=== PATIENT | female | born 1955 | race Caucasian/White ===

== ENCOUNTER 2017-06-18 20:50 | Emergency (ER) | payer BC, OTHER ==
--- NOTE | 2017-06-18 21:21 | EDM.PDOC ---
ED HPI GENERAL MEDICAL PROBLEM - General Chief Complaint: Lower Extremity Injury/Pain Stated Complaint: PT HAS PAIN IN RT THIGH Time Seen by Provider: 06/18/17 21:16 Source of Information: Reports: Patient History Limitations: Reports: No Limitations - History of Present Illness INITIAL COMMENTS - FREE TEXT/NARRATIVE: HISTORY AND PHYSICAL: []1-year-old female presenting with right leg pain to her thigh extending down to her knee History of Present Illness: []Recently has been traveling in the car for 10 hours driving Patient experienced 4 times of pain originating in her groin down to the knee Does not have the pain when she presents to the ER took 1 baby aspirin earlier today Review of Systems: As per history of present illness and below otherwise all systems reviewed and negative. Past medical history: As per history of present illness and as reviewed below otherwise noncontributory. Surgical history: As per history of present illness and as reviewed below otherwise noncontributory. Social history: No reported history of drug or alcohol abuse. Family history: As per history of present illness and as reviewed below otherwise noncontributory. Physical exam: Alert and oriented female answers questions appropriately speaking in full sentences HEENT: Atraumatic, normocehpalic, pupils reactive, negative for conjunctival pallor or scleral icterus, mucous membranes moist, throat clear, neck supple, nontender, trachea midline. Lungs: Clear to auscultation, breath sounds equal bilaterally, chest non tender. Heart: S1S2, regular, negative for clicks, rubs, or JVD. Abdomen: Soft, nondistended, nontender. Negative for masses or hepatossplenmegaly. Negative for costovertebral tenderness. Faint right femoral pulse Pelvis: Stable nontender. Genitourinary: Deferred. Rectal: Deferred Extremities: Atraumatic, negative for cords or calf pain. Neurovascular unremarkable. Neuro: Awake, alert, oriented. Cranial nerves II through XII unremarkable. Cerebellum unremarkable. Motor and sensory unremarkable throughout. Exam nonfocal. Diagnostics: []Venous Doppler negative for DVT Therapeutics: [] Impression: [Atypical leg pain resolved] Plan: []Home Lobe with PCP if Definitive disposition and diagnosis as appropriate pending reevaluation and review of above. Onset: Sudden Duration: Resolved Prior to Arrival - Related Data Allergies Allergy/AdvReac Type Severity Reaction Status Date / Time No Known Allergies Allergy Verified 07/25/17 21:13 Home Meds: Home Meds . [No Known Home Meds] 06/18/17 [History] Review of Systems - Review of Systems Review Of Systems: ROS reveals no pertinent complaints other than HPI. ED EXAM, GENERAL - Physical Exam Exam: See Below (See dictation) Course - Vital Signs Last Recorded V/S: Last Vital Signs Temp 36.8 C 06/18/17 21:13 Pulse 63 06/18/17 21:13 Resp 18 06/18/17 21:13 BP 223/100 H 06/18/17 21:13 Pulse Ox 98 06/18/17 21:13 - Orders/Labs/Meds Orders: Active Orders 24 hr Category Date Time Status Venous Doppler Lwr Ext Rt [US] Stat Exams 06/18/17 21:22 Taken Departure - Departure Time of Disposition: 22:15 Disposition: Home, Self-Care 01 Condition: Good Clinical Impression: Leg pain, right - Discharge Information Forms: ED Department Discharge Additional Instructions: The following information is given to patients seen in the emergency department who are being discharged to home. This information is to outline your options for follow-up care. We provide all patients seen in our emergency department with a follow-up referral. The need for follow-up, as well as the timing and circumstances, are variable depending upon the specifics of your emergency department visit. If you don't have a primary care physician on staff, we will provide you with a referral. We always advise you to contact your personal physician following an emergency department visit to inform them of the circumstance of the visit and for follow-up with them and/or the need for any referrals to a consulting specialist. The emergency department will also refer you to a specialist when appropriate. This referral assures that you have the opportunity for followup care with a specialist. All of these measure are taken in an effort to provide you with optimal care, which includes your followup. Under all circumstances we always encourage you to contact your private physician who remains a resource for coordinating your care. When calling for followup care, please make the office aware that this follow-up is from your recent emergency room visit. If for any reason you are refused follow-up, please contact the [facility] emergency department at and asked to speak to the emergency department charge nurse. Follow up with your primary care should symptoms continue - My Orders Last 24 Hours: My Active Orders 06/18/17 21:22 Venous Doppler Lwr Ext Rt [US] Stat - Assessment/Plan Last 24 Hours: My Active Orders 06/18/17 21:22 Venous Doppler Lwr Ext Rt [US] Stat
[2017-06-19 02:25] VITALS: BP 184/95
--- NOTE | 2017-06-19 09:53 | US ---
EXAM DATE: 06/18/17 PATIENT'S AGE: 61 Patient: BONILLA BREWER Facility: [place], [place] Site . Site : [id number] Study: US Extremity Right [id number]/25/2017 9:59:52 PM Ordering Physician: Doctor Gillis Final Report: INDICATION: Right leg pain TECHNIQUE: Ultrasound venous duplex lower right extremity. Compression venous exam was performed using power-scale, color Doppler, and spectral Doppler imaging. COMPARISON: None FINDINGS: Sonographic imaging demonstrates the right common femoral, deep femoral, superficial femoral, popliteal, and posterior tibial veins to be fully compressible with normal color Doppler blood flow. IMPRESSION: Normal right lower extremity venous ultrasound, no sign of deep venous thrombosis. Dictated by Cathie Ricci MD @ Jun 18 2017 10:08PM (Electronic Signature) Report Signed by Proxy. MARGI
== END 2017-06-18 22:44 | disposition home or self-care (01) ==
LOC: MW.ED 20:50
DX: M79.604 Pain in right leg (principal)
CPT/HCPCS: 93971-26-RT; 93971-RT; 99282; 99283-25

== ENCOUNTER 2018-08-04 14:21 | Observation (INO) | payer BC ==
[2018-08-04] MEDS ORDERED: Sodium Chloride 0.9% 10 ML Syringe FLUSH PRN ×2 (14:52→16:23)
[2018-08-04] MEDS ORDERED: Sodium Chloride 0.9% 2.5 ML Syringe FLUSH PRN ×2 (14:52→16:23)
--- NOTE | 2018-08-04 14:54 | EDM.PDOC ---
ED HPI GENERAL MEDICAL PROBLEM - General Chief Complaint: Chest Pain Stated Complaint: CHEST PAIN Time Seen by Provider: 08/04/18 14:22 Source of Information: Reports: Patient History Limitations: Reports: No Limitations - History of Present Illness INITIAL COMMENTS - FREE TEXT/NARRATIVE: History of present illness: []Patient diagnosed with hypertension and placed on a diuretic without improvement. She's had multiple brief episodes of chest pain with exertion stress. Patient was shopping at [employer] carrying a basket she started having chest "fluttering" around 1:00 this afternoon. She decided to come to the emergency room after it did not subside after taking aspirin and resting in her vehicle. Review of systems: As per history of present illness and below otherwise all systems reviewed and negative. Past medical history: As per history of present illness and as reviewed below otherwise noncontributory. Surgical history: As per history of present illness and as reviewed below otherwise noncontributory. Social history: No reported history of drug or alcohol abuse. Family history: As per history of present illness and as reviewed below otherwise noncontributory. Physical exam: General: Well developed, well nourished in NAD HEENT: Atraumatic, normocephalic, pupils reactive, negative for conjunctival pallor or scleral icterus, mucous membranes moist, throat clear, neck supple, nontender, trachea midline. Lungs: Clear to auscultation, breath sounds equal bilaterally, chest nontender. Heart: S1S2, regular, negative for clicks, rubs, or JVD. Abdomen: Soft, nondistended, nontender. Negative for masses or hepatosplenomegaly. Negative for costovertebral tenderness. Pelvis: Stable nontender. Genitourinary: Deferred. Rectal: Deferred. Extremities: Atraumatic, negative for cords or calf pain. Neurovascular unremarkable. Neuro: Awake, alert, oriented. Cranial nerves II through XII unremarkable. Cerebellum unremarkable. Motor and sensory unremarkable throughout. Exam nonfocal. Skin:warm and dry Diagnostics: EKG, CBC, chemistry, troponin, chest x-ray Therapeutics: Aspirin, nitroglycerin, labetalol ED Course: unremarkable Impression: Uncontrolled hypertension Prescriptions: Plan: Admit to observation to rule out [place] Definitive disposition and diagnosis as appropriate pending reevaluation and review of above. - Related Data Allergies Allergy/AdvReac Type Severity Reaction Status Date / Time azithromycin Allergy Itching Verified 08/04/18 16:44 Home Meds: Home Meds Chlorthalidone 25 mg PO WITHBREAKFAST 08/04/18 [History] Past Medical History - Past Health History Medical/Surgical History: Denies Medical/Surgical History Social & Family History - Caffeine Use Caffeine Use: Reports: Coffee ED ROS GENERAL - Review of Systems Review Of Systems: ROS reveals no pertinent complaints other than HPI. ED EXAM, GENERAL - Physical Exam Exam: See Below (See history of present illness) Course - Vital Signs Last Recorded V/S: Last Vital Signs Temp 97.3 F 08/05/18 03:42 Pulse 72 08/05/18 03:42 Resp 16 08/05/18 03:42 BP 159/75 H 08/05/18 03:42 Pulse Ox 99 08/05/18 03:42 - Orders/Labs/Meds Orders: Active Orders 24 hr Category Date Time Status Nitroglycerin [Nitrostat] Med 08/04/18 14:52 Active 0.4 mg SL Q5M PRN Sodium Chloride 0.9% [Saline Flush] Med 08/04/18 14:52 Active 10 ml FLUSH ASDIRECTED PRN Sodium Chloride 0.9% [Saline Flush] Med 08/04/18 14:52 Active 2.5 ml FLUSH ASDIRECTED PRN Saline Lock Insert [OM.PC] Stat Oth 08/04/18 14:52 Ordered Medication Orders Acetaminophen (Tylenol) 650 mg PO Q4H PRN PRN Reason: Pain (Mild 1-3)/fever Chlorthalidone (Chlorthalidone) 25 mg PO DAILY CLAUDIA Enoxaparin Sodium (Lovenox) 40 mg SUBCUT Q24H CLAUDIA Last Admin: 08/04/18 17:49 Dose: 40 mg Sodium Chloride (Normal Saline) 1,000 mls @ 125 mls/hr IV ASDIRECTED CLAUDIA Last Admin: 08/05/18 03:28 Dose: 125 mls/hr Infusion: 08/05/18 03:28 Dose: 125 mls/hr Admin: 08/04/18 19:28 Dose: 125 mls/hr Morphine Sulfate (Morphine) 2 mg IVPUSH Q2H PRN PRN Reason: Pain (severe 7-10) Stop: 08/05/18 16:28 Nitroglycerin (Nitrostat) 0.4 mg SL Q5M PRN PRN Reason: Chest Pain Last Admin: 08/04/18 15:12 Dose: 0.4 mg Admin: 08/04/18 14:58 Dose: 0.4 mg Nitroglycerin (Nitrostat) 0.4 mg SL Q5M PRN PRN Reason: Chest Pain Ondansetron HCl (Zofran) 4 mg IVPUSH Q4H PRN PRN Reason: Nausea/Vomiting Potassium Chloride (Klor-Con M20) 40 meq PO BID CLAUDIA Last Admin: 08/04/18 21:16 Dose: 40 meq Admin: 08/04/18 17:47 Dose: 40 meq Sodium Chloride (Saline Flush) 10 ml FLUSH ASDIRECTED PRN PRN Reason: Keep Vein Open Last Admin: 08/04/18 15:00 Dose: 10 ml Sodium Chloride (Saline Flush) 2.5 ml FLUSH ASDIRECTED PRN PRN Reason: Keep Vein Open Last Admin: 08/04/18 14:59 Dose: 2.5 ml Sodium Chloride (Saline Flush) 10 ml FLUSH ASDIRECTED PRN PRN Reason: Keep Vein Open Sodium Chloride (Saline Flush) 2.5 ml FLUSH ASDIRECTED PRN PRN Reason: Keep Vein Open Labs: Laboratory Tests 08/04/18 08/04/18 08/04/18 Range/Units 15:10 15:10 15:10 WBC 9.35 (4.0-11.0) K/uL RBC 5.76 (4.30-5.90) M/uL Hgb 17.1 H (12.0-16.0) g/dL Hct 48.9 H (36.0-46.0) % MCV 84.9 (80.0-98.0) fL MCH 29.7 (27.0-32.0) pg MCHC 35.0 (31.0-37.0) g/dL RDW Std Deviation 39.3 (28.0-62.0) fl RDW Coeff of Jennifer 13 (11.0-15.0) % Plt Count 216 (150-400) K/uL MPV 10.60 (7.40-12.00) fL Neut % (Auto) 68.6 (48.0-80.0) % Lymph % (Auto) 22.2 (16.0-40.0) % Shelby % (Auto) 6.7 (0.0-15.0) % Eos % (Auto) 2.2 (0.0-7.0) % Baso % (Auto) 0.3 (0.0-1.5) % Neut # (Auto) 6.4 H (1.4-5.7) K/uL Lymph # (Auto) 2.1 (0.6-2.4) K/uL Shelby # (Auto) 0.6 (0.0-0.8) K/uL Eos # (Auto) 0.2 (0.0-0.7) K/uL Baso # (Auto) 0.0 (0.0-0.1) K/uL Nucleated RBC % 0.0 /100WBC Nucleated RBCs # 0 K/uL Sodium 136 (136-145) mmol/L Potassium 3.0 L (3.5-5.1) mmol/L Chloride 99 (98-107) mmol/L Carbon Dioxide 28.7 (21.0-32.0) mmol/L BUN 14 (7.0-18.0) mg/dL Creatinine 1.0 (0.6-1.0) mg/dL Est Cr Clr Drug Dosing 60.18 mL/min Estimated GFR (MDRD) 56.0 ml/min Glucose 187 H (74-106) mg/dL Hemoglobin A1c (4.5-6.2) % Calcium 10.4 H (8.5-10.1) mg/dL Total Bilirubin 0.8 (0.2-1.0) mg/dL AST 22 (15-37) IU/L ALT 45 (14-63) IU/L Alkaline Phosphatase 152 H (46-116) U/L Troponin I < 0.050 (0.000-0.056) ng/mL Total Protein 7.4 (6.4-8.2) g/dL Albumin 4.0 (3.4-5.0) g/dL Globulin 3.4 (2.0-3.5) g/dL Albumin/Globulin Ratio 1.2 L (1.3-2.8) Triglycerides 218 H (0-200) mg/dL Cholesterol 245 H (50-200) mg/dL LDL Cholesterol, Calc 157 (60-180) mg/dL VLDL Cholesterol 43 (5-55) mg/dL HDL Cholesterol 44 (40-60) mg/dL Cholesterol/HDL Ratio 5.6 (3.3-6.0) TSH 3rd Generation (0.36-3.74) uIU/mL 08/04/18 08/04/18 Range/Units 15:10 15:10 WBC (4.0-11.0) K/uL RBC (4.30-5.90) M/uL Hgb (12.0-16.0) g/dL Hct (36.0-46.0) % MCV (80.0-98.0) fL MCH (27.0-32.0) pg MCHC (31.0-37.0) g/dL RDW Std Deviation (28.0-62.0) fl RDW Coeff of Jennifer (11.0-15.0) % Plt Count (150-400) K/uL MPV (7.40-12.00) fL Neut % (Auto) (48.0-80.0) % Lymph % (Auto) (16.0-40.0) % Shelby % (Auto) (0.0-15.0) % Eos % (Auto) (0.0-7.0) % Baso % (Auto) (0.0-1.5) % Neut # (Auto) (1.4-5.7) K/uL Lymph # (Auto) (0.6-2.4) K/uL Shelby # (Auto) (0.0-0.8) K/uL Eos # (Auto) (0.0-0.7) K/uL Baso # (Auto) (0.0-0.1) K/uL Nucleated RBC % /100WBC Nucleated RBCs # K/uL Sodium (136-145) mmol/L Potassium (3.5-5.1) mmol/L Chloride (98-107) mmol/L Carbon Dioxide (21.0-32.0) mmol/L BUN (7.0-18.0) mg/dL Creatinine (0.6-1.0) mg/dL Est Cr Clr Drug Dosing mL/min Estimated GFR (MDRD) ml/min Glucose (74-106) mg/dL Hemoglobin A1c 5.8 (4.5-6.2) % Calcium (8.5-10.1) mg/dL Total Bilirubin (0.2-1.0) mg/dL AST (15-37) IU/L ALT (14-63) IU/L Alkaline Phosphatase (46-116) U/L Troponin I (0.000-0.056) ng/mL Total Protein (6.4-8.2) g/dL Albumin (3.4-5.0) g/dL Globulin (2.0-3.5) g/dL Albumin/Globulin Ratio (1.3-2.8) Triglycerides (0-200) mg/dL Cholesterol (50-200) mg/dL LDL Cholesterol, Calc (60-180) mg/dL VLDL Cholesterol (5-55) mg/dL HDL Cholesterol (40-60) mg/dL Cholesterol/HDL Ratio (3.3-6.0) TSH 3rd Generation 1.41 (0.36-3.74) uIU/mL Meds: Medications Generic Name Dose Route Start Last Admin Trade Name Freq PRN Reason Stop Dose Admin Acetaminophen 650 mg 08/04/18 16:23 Tylenol PO Q4H PRN Pain (Mild 1-3)/fever Chlorthalidone 25 mg 08/05/18 09:00 Chlorthalidone PO DAILY CLAUDIA Enoxaparin Sodium 40 mg 08/04/18 16:30 08/04/18 17:49 Lovenox SUBCUT 40 mg Q24H CLAUDIA Administration Sodium Chloride 1,000 mls @ 125 mls/hr 08/04/18 16:30 08/05/18 03:28 Normal Saline IV 125 mls/hr ASDIRECTED CLAUDIA Administration Morphine Sulfate 2 mg 08/04/18 16:23 Morphine IVPUSH 08/05/18 16:28 Q2H PRN Pain (severe 7-10) Nitroglycerin 0.4 mg 08/04/18 14:52 08/04/18 15:12 Nitrostat SL 0.4 mg Q5M PRN Administration Chest Pain Nitroglycerin 0.4 mg 08/04/18 16:23 Nitrostat SL Q5M PRN Chest Pain Ondansetron HCl 4 mg 08/04/18 16:23 Zofran IVPUSH Q4H PRN Nausea/Vomiting Potassium Chloride 40 meq 08/04/18 17:30 08/04/18 21:16 Klor-Con M20 PO 40 meq BID CLAUDIA Administration Sodium Chloride 10 ml 08/04/18 14:52 08/04/18 15:00 Saline Flush FLUSH 10 ml ASDIRECTED PRN Administration Keep Vein Open Sodium Chloride 2.5 ml 08/04/18 14:52 08/04/18 14:59 Saline Flush FLUSH 2.5 ml ASDIRECTED PRN Administration Keep Vein Open Sodium Chloride 10 ml 08/04/18 16:23 Saline Flush FLUSH ASDIRECTED PRN Keep Vein Open Sodium Chloride 2.5 ml 08/04/18 16:23 Saline Flush FLUSH ASDIRECTED PRN Keep Vein Open Discontinued Medications Generic Name Dose Route Start Last Admin Trade Name Freq PRN Reason Stop Dose Admin Labetalol HCl 20 mg 08/04/18 15:17 08/04/18 15:32 Normodyne IVPUSH 08/04/18 15:18 20 mg NOW ONE Administration Protocol Departure - Departure Time of Disposition: 16:25 Disposition: Refer to Observation Condition: Good Clinical Impression: Uncontrolled hypertension - My Orders Last 24 Hours: My Active Orders 08/04/18 14:52 Nitroglycerin [Nitrostat] 0.4 mg SL Q5M PRN Sodium Chloride 0.9% [Saline Flush] 10 ml FLUSH ASDIRECTED PRN Sodium Chloride 0.9% [Saline Flush] 2.5 ml FLUSH ASDIRECTED PRN Saline Lock Insert [OM.PC] Stat - Assessment/Plan Last 24 Hours: My Active Orders 08/04/18 14:52 Nitroglycerin [Nitrostat] 0.4 mg SL Q5M PRN Sodium Chloride 0.9% [Saline Flush] 10 ml FLUSH ASDIRECTED PRN Sodium Chloride 0.9% [Saline Flush] 2.5 ml FLUSH ASDIRECTED PRN Saline Lock Insert [OM.PC] Stat
[2018-08-04] MEDS: Nitroglycerin 0.4 MG Tab.SL SL PRN ×2 (14:58→15:12)
[2018-08-04] MEDS ORDERED: Labetalol 20 MG/4 ML Syringe IVPUSH ONE (15:17)
--- NOTE | 2018-08-04 15:42 | CR ---
EXAMINATION: Portable chest radiograph. HISTORY: Shortness of breath. FINDINGS: The trachea is midline. The cardiomediastinal silhouette is within normal limits. No pulmonary infilt rates, effusions or pneumothorax. Osseous structures appear unremarkable. IMPRESSION: No acute cardiopulmonary process.
[2018-08-04 15:52] LABS: CHLORIDE,CL 99 mmol/L (98-107); SODIUM,NA 136 mmol/L (136-145)
[2018-08-04] MEDS ORDERED: Morphine 10 MG/ML Syringe IVPUSH PRN (16:23)
[2018-08-04] MEDS ORDERED: Acetaminophen 325 MG Tab PO PRN (16:23)
[2018-08-04] MEDS ORDERED: Ondansetron 4 MG/2 ML SDV IVPUSH PRN (16:23)
[2018-08-04] MEDS ORDERED: Nitroglycerin 0.4 MG Tab.SL SL PRN (16:23)
[2018-08-04] MEDS ORDERED: Enoxaparin 40 MG/0.4 ML Syringe SUBCUT SCH (16:30)
--- NOTE | 2018-08-04 16:36 | PCM.HP ---
H&P History of Present Illness - General Date of Service: 08/04/18 Admit Problem/Dx: Admission Diagnosis/Problem Admission Diagnosis/Problem Chest pain Source of Information: Patient History Limitations: Reports: No Limitations - History of Present Illness Initial Comments - Free Text/Narative: This is a 62-year-old female with a significant past medical history of uncontrolled hypertension who is presenting today with vague chest discomfort and heart palpitations. Patient states that she was in [facility] when she had this funny feeling and come into the ER due to these concerns. The patient just recently was started on chlorthalidone 25 mg by her primary care in [place] for her hypertension. Prior to this the patient had been very resistant to hypertensive medications despite being clinically diagnosed in having a significant family history of all 6 of her other siblings with hypertension and her father suffering an ND at the age of 63. In the ED the patient received a sublingual nitroglycerin which did alleviate some of her discomfort, and was given labetalol due to her blood pressures in the 200s over 100s. After receiving this dose her blood pressures have normalized, her troponin is negative 1, and no EKG changes except for a single PVC was seen. Patient states that she does have a cardiology appointment scheduled in [facility] in [place] for which she is also getting a cardiac stress test done both are occurring on August 26, 2018. Patient denies any other significant past medical history, patient denies a smoking history. - Related Data Allergies/Adverse Reactions: Allergies Allergy/AdvReac Type Severity Reaction Status Date / Time azithromycin Allergy Cannot Verified 08/04/18 14:33 Remember Home Medications: Home Meds Chlorthalidone 25 mg PO DAILY 08/04/18 [History] Past Medical History - Past Health History Medical/Surgical History: Denies Medical/Surgical History Cardiovascular History: Reports: Hypertension Social & Family History - Family History Family Medical History: Noncontributory - Tobacco Use Smoking Status *Q: Never Smoker - Caffeine Use Caffeine Use: Reports: Coffee - Recreational Drug Use Recreational Drug Use: No H&P Review of Systems - Review of Systems: Review Of Systems: ROS reveals no pertinent complaints other than HPI. Exam - Exam Exam: See Below - Vital Signs Vital Signs: Last Vital Signs Temp 36.2 C 08/04/18 14:33 Pulse 108 H 08/04/18 14:33 Resp 20 08/04/18 14:33 BP 135/78 08/04/18 16:03 Pulse Ox 95 08/04/18 14:33 Weight: 100.244 kg - Exam General: Alert, Oriented, Cooperative Neck: Supple Lungs: Clear to Auscultation, Normal Respiratory Effort Cardiovascular: Regular Rate, Regular Rhythm Extremities: Normal Inspection, Normal Range of Motion Neuro Extensive - Mental Status: Alert, Oriented x3, Normal Mood/Affect, Normal Cognition, Memory Intact - Patient Data Lab Results Last 24 hrs: Laboratory Results - last 24 hr 08/04/18 08/04/18 Range/Units 15:10 15:10 WBC 9.35 (4.0-11.0) K/uL RBC 5.76 (4.30-5.90) M/uL Hgb 17.1 H (12.0-16.0) g/dL Hct 48.9 H (36.0-46.0) % MCV 84.9 (80.0-98.0) fL MCH 29.7 (27.0-32.0) pg MCHC 35.0 (31.0-37.0) g/dL RDW Std Deviation 39.3 (28.0-62.0) fl RDW Coeff of Jennifer 13 (11.0-15.0) % Plt Count 216 (150-400) K/uL MPV 10.60 (7.40-12.00) fL Neut % (Auto) 68.6 (48.0-80.0) % Lymph % (Auto) 22.2 (16.0-40.0) % [place] % (Auto) 6.7 (0.0-15.0) % Eos % (Auto) 2.2 (0.0-7.0) % Baso % (Auto) 0.3 (0.0-1.5) % Neut # (Auto) 6.4 H (1.4-5.7) K/uL Lymph # (Auto) 2.1 (0.6-2.4) K/uL [place] # (Auto) 0.6 (0.0-0.8) K/uL Eos # (Auto) 0.2 (0.0-0.7) K/uL Baso # (Auto) 0.0 (0.0-0.1) K/uL Nucleated RBC % 0.0 /100WBC Nucleated RBCs # 0 K/uL Sodium 136 (136-145) mmol/L Potassium 3.0 L (3.5-5.1) mmol/L Chloride 99 (98-107) mmol/L Carbon Dioxide 28.7 (21.0-32.0) mmol/L BUN 14 (7.0-18.0) mg/dL Creatinine 1.0 (0.6-1.0) mg/dL Est Cr Clr Drug Dosing 60.18 mL/min Estimated GFR (MDRD) 56.0 ml/min Glucose 187 H (74-106) mg/dL Calcium 10.4 H (8.5-10.1) mg/dL Total Bilirubin 0.8 (0.2-1.0) mg/dL AST 22 (15-37) IU/L ALT 45 (14-63) IU/L Alkaline Phosphatase 152 H (46-116) U/L Troponin I < 0.050 (0.000-0.056) ng/mL Total Protein 7.4 (6.4-8.2) g/dL Albumin 4.0 (3.4-5.0) g/dL Globulin 3.4 (2.0-3.5) g/dL Albumin/Globulin Ratio 1.2 L (1.3-2.8) Result Diagrams: 08/04/18 15:10 08/04/18 15:10 - Problem List (1) Uncontrolled hypertension SNOMED Code(s): 71795142, 04050447 ICD Code: I10 - ESSENTIAL (PRIMARY) HYPERTENSION Status: Acute Current Visit: Yes (2) Chest pain, atypical SNOMED Code(s): 063574337 ICD Code: R07.89 - OTHER CHEST PAIN Status: Acute Current Visit: Yes Problem List Initiated/Reviewed/Updated: Yes Orders Last 24hrs: Active Orders 24 hr Category Date Time Status Patient Status [ADT] Stat ADT 08/04/18 16:00 Active Cardiac Monitoring [RC] CONTINUOUS Care 08/04/18 16:24 Ordered EKG Documentation Completion [RC] STAT Care 08/04/18 14:52 Active Height and Weight [RC] UPON Care 08/04/18 16:23 Ordered Intake and Output [RC] QSHIFT Care 08/04/18 16:24 Ordered Oxygen Therapy [RC] PRN Care 08/04/18 16:23 Ordered Telemetry Monitoring [Cardiac Monitoring] [RC] . Care 08/04/18 16:30 Ordered DIRECTED Up With Assistance [RC] ASDIRECTED Care 08/04/18 16:23 Ordered VTE/DVT Education [RC] PER UNIT ROUTINE Care 08/04/18 16:23 Ordered Vital Signs [RC] Q4H Care 08/04/18 16:23 Ordered Heart Healthy Diet [DIET] Diet 08/04/18 Breakfast Ordered CBC WITH AUTO DIFF [HEME] AM Lab 08/05/18 05:11 Ordered COMPREHENSIVE METABOLIC PN,CMP [CHEM] AM Lab 08/05/18 05:11 Ordered GLYCOSYLATED HEMOGLOBIN,HGBA1C [CHEM] Routine Lab 08/04/18 16:23 Ordered LIPID PANEL [CHEM] Routine Lab 08/04/18 16:23 Ordered TROPONIN I [CHEM] Q8H Lab 08/04/18 23:00 Ordered TROPONIN I [CHEM] Q8H Lab 08/05/18 07:00 Ordered Acetaminophen [Tylenol] Med 08/04/18 16:23 Ordered 650 mg PO Q4H PRN Chlorthalidone Med 08/05/18 09:00 Ordered 25 mg PO DAILY Enoxaparin [Lovenox] Med 08/04/18 16:30 Ordered 40 mg SUBCUT Q24H Morphine Med 08/04/18 16:23 Ordered 2 mg IVPUSH Q2H PRN Nitroglycerin [Nitrostat] Med 08/04/18 14:52 Active 0.4 mg SL Q5M PRN Nitroglycerin [Nitrostat] Med 08/04/18 16:23 Ordered 0.4 mg SL Q5M PRN Ondansetron [Zofran] Med 08/04/18 16:23 Ordered 4 mg IVPUSH Q4H PRN Sodium Chloride 0.9% @ 125 MLS/HR (1000ml) Med 08/04/18 16:30 Ordered Sodium Chloride 0.9% [Normal Saline] 1,000 ml IV ASDIRECTED Sodium Chloride 0.9% [Saline Flush] Med 08/04/18 14:52 Active 10 ml FLUSH ASDIRECTED PRN Sodium Chloride 0.9% [Saline Flush] Med 08/04/18 16:23 Ordered 10 ml FLUSH ASDIRECTED PRN Sodium Chloride 0.9% [Saline Flush] Med 08/04/18 14:52 Active 2.5 ml FLUSH ASDIRECTED PRN Sodium Chloride 0.9% [Saline Flush] Med 08/04/18 16:23 Ordered 2.5 ml FLUSH ASDIRECTED PRN Peripheral IV Insertion Adult [OM.PC] Routine Oth 08/04/18 16:23 Ordered Saline Lock Insert [OM.PC] Routine Oth 08/04/18 16:23 Ordered Saline Lock Insert [OM.PC] Stat Oth 08/04/18 14:52 Ordered Resuscitation Status Routine Resus Stat 08/04/18 16:23 Ordered Medication Orders Acetaminophen (Tylenol) 650 mg PO Q4H PRN PRN Reason: Pain (Mild 1-3)/fever Chlorthalidone (Chlorthalidone) 25 mg PO DAILY CLAUDIA Enoxaparin Sodium (Lovenox) 40 mg SUBCUT Q24H CLAUDIA Sodium Chloride (Normal Saline) 1,000 mls @ 125 mls/hr IV ASDIRECTED CLAUDIA Morphine Sulfate (Morphine) 2 mg IVPUSH Q2H PRN PRN Reason: Pain (severe 7-10) Stop: 08/05/18 16:28 Nitroglycerin (Nitrostat) 0.4 mg SL Q5M PRN PRN Reason: Chest Pain Last Admin: 08/04/18 15:12 Dose: 0.4 mg Admin: 08/04/18 14:58 Dose: 0.4 mg Nitroglycerin (Nitrostat) 0.4 mg SL Q5M PRN PRN Reason: Chest Pain Ondansetron HCl (Zofran) 4 mg IVPUSH Q4H PRN PRN Reason: Nausea/Vomiting Sodium Chloride (Saline Flush) 10 ml FLUSH ASDIRECTED PRN PRN Reason: Keep Vein Open Last Admin: 08/04/18 15:00 Dose: 10 ml Sodium Chloride (Saline Flush) 2.5 ml FLUSH ASDIRECTED PRN PRN Reason: Keep Vein Open Last Admin: 08/04/18 14:59 Dose: 2.5 ml Sodium Chloride (Saline Flush) 10 ml FLUSH ASDIRECTED PRN PRN Reason: Keep Vein Open Sodium Chloride (Saline Flush) 2.5 ml FLUSH ASDIRECTED PRN PRN Reason: Keep Vein Open Assessment/Plan Comment:: This is a 62-year-old female that is presenting with atypical chest pain and uncontrolled hypertension. -Patient admitted under observation for ACS rule out, troponins 3 -Patient to be placed on telemetry to assess for any abnormal arrhythmia, if everything goes well tissue to be discharged as she already has a outpatient cardiac stress test scheduled she will not need another one however likely she will need to be discharged home on a event monitor for 30 days.
[2018-08-04] MEDS: Potassium Chloride 20 MEQ Tab.ER PO SCH ×2 (17:47→21:16)
[2018-08-04] MEDS: Sodium Chloride 0.9% 1,000 ML IV SCH (19:28)
[2018-08-05] MEDS: Sodium Chloride 0.9% 1,000 ML IV SCH (03:28)
[2018-08-05 07:22] LABS: CHLORIDE,CL 106 mmol/L (98-107); SODIUM,NA 141 mmol/L (136-145)
[2018-08-05] MEDS: Potassium Chloride 20 MEQ Tab.ER PO SCH (08:29)
[2018-08-05] MEDS ORDERED: Chlorthalidone 25 MG Tab PO SCH (09:00)
[2018-08-05] MEDS ORDERED: Lisinopril 5 MG Tab PO SCH (10:15)
[2018-08-05 10:53] VITALS: BP 174/80
--- NOTE | 2018-08-05 12:22 | PCM.DCSUM1 ---
Discharge Summary - Hospital Course HPI Initial Comments: Discharge Summary Date of admission: 08/04/18 Date of discharge: 08/05/18 Admitting diagnosis: #1. chest pain with heart palpitations rule out ACS #2. Hypertension #3. #4. #5. Discharge diagnoses: #1. acute cord syndrome ruled out, atypical chest pain #2. no abnormal erythema appreciated throughout patient's stay #3. hypertension #4. #5. Consultations: None Procedures: None Hospitalization course: patient was admitted for acute coronary syndrome rule out an assessment of possible arrhythmia. She was placed on telemetry and troponins were drawn 3. Patient throughout her entire stay did not have any further episodes of chest pain, she did complain of possible flutter-type sensationa few times during her stay but when assessing telemetry throughout her entire process there was no abnormal arrhythmia appreciated there was just a few PVCs that were seen but throughout her entire stay she was normal sinus rhythm. She did have an elevated high blood pressure and was subsequently discharged home with the continuation of her hypertensive medication chlorthalidone 25 mg daily along witha new prescription for lisinopril 5 mg daily. patient has been told to write down and Atripla pressures piercing in the morning and lasting at night for 2 weeks time and present those numbers to her primary care physician for assessment of her hypertension and whether or not it is being controlled with her anti-hypertensive medication. patient already has an appointment with cardiology in [place] on August 26 as well as a exercise stress test scheduled in the same facility. At this point in time it does not appear that the patient will need a Holter monitor however patient has been advised that if she continues to have this sensation she will discuss with her primary care physician for the possibility of having a 30 day event monitor set up for her. Diagnosis: Stroke: No Modified [place] Scale: No Symptoms at All Modified [place] Scale Score: 0 - Discharge Data Discharge Date: 08/05/18 Discharge Disposition: Home, Self-Care 01 Condition: Good - Discharge Diagnosis/Problem(s) (1) Uncontrolled hypertension SNOMED Code(s): 24757083, [id number] ICD Code: I10 - ESSENTIAL (PRIMARY) HYPERTENSION Status: Acute (2) Chest pain, atypical SNOMED Code(s): 602425513 ICD Code: R07.89 - OTHER CHEST PAIN Status: Acute - Patient Instructions Diet: Heart Healthy Diet Activity: As Tolerated Driving: Do Not Drive Showering/Bathing: March Shower Notify Provider of: Fever, Increased Pain, Nausea and/or Vomiting - Discharge Plan Prescriptions/Med Rec: Lisinopril [Prinivil] 5 mg PO DAILY 30 Days #30 tablet Home Medications: Home Meds Chlorthalidone 25 mg PO WITHBREAKFAST 08/04/18 [History] Lisinopril [Prinivil] 5 mg PO DAILY 30 Days #30 tablet 08/05/18 [Rx] Patient Handouts: Heart-Healthy Eating Plan, [id number], DASH Eating Plan, Nonspecific Chest Pain, [id number], Hypertension, [id number], Lisinopril tablets, Heart-Healthy Eating Plan, Cooking With Less Salt Referrals: Halima Alejandro NP [Ordering Only Provider] - 08/13/18 12:15 pm - Discharge Summary/Plan Comment DC Time >30 min.: No - Patient Data Vitals - Most Recent: Last Vital Signs Temp 36.4 C 08/05/18 10:52 Pulse 75 08/05/18 10:52 Resp 12 08/05/18 10:52 BP 174/80 H 08/05/18 10:52 Pulse Ox 99 08/05/18 10:52 Weight - Most Recent: 100.062 kg I&O - Last 24 hours: Intake & Output 08/04/18 08/05/18 08/05/18 22:59 06:59 14:59 Intake Total 780 Output Total 1450 Balance -670 Lab Results - Last 24 hrs: Laboratory Results - last 24 hr 08/04/18 08/04/18 08/04/18 Range/Units 15:10 15:10 15:10 WBC 9.35 (4.0-11.0) K/uL RBC 5.76 (4.30-5.90) M/uL Hgb 17.1 H (12.0-16.0) g/dL Hct 48.9 H (36.0-46.0) % MCV 84.9 (80.0-98.0) fL MCH 29.7 (27.0-32.0) pg MCHC 35.0 (31.0-37.0) g/dL RDW Std Deviation 39.3 (28.0-62.0) fl RDW Coeff of Jennifer 13 (11.0-15.0) % Plt Count 216 (150-400) K/uL MPV 10.60 (7.40-12.00) fL Neut % (Auto) 68.6 (48.0-80.0) % Lymph % (Auto) 22.2 (16.0-40.0) % [place] % (Auto) 6.7 (0.0-15.0) % Eos % (Auto) 2.2 (0.0-7.0) % Baso % (Auto) 0.3 (0.0-1.5) % Neut # (Auto) 6.4 H (1.4-5.7) K/uL Lymph # (Auto) 2.1 (0.6-2.4) K/uL [place] # (Auto) 0.6 (0.0-0.8) K/uL Eos # (Auto) 0.2 (0.0-0.7) K/uL Baso # (Auto) 0.0 (0.0-0.1) K/uL Nucleated RBC % 0.0 /100WBC Nucleated RBCs # 0 K/uL Sodium 136 (136-145) mmol/L Potassium 3.0 L (3.5-5.1) mmol/L Chloride 99 (98-107) mmol/L Carbon Dioxide 28.7 (21.0-32.0) mmol/L BUN 14 (7.0-18.0) mg/dL Creatinine 1.0 (0.6-1.0) mg/dL Est Cr Clr Drug Dosing 60.18 mL/min Estimated GFR (MDRD) 56.0 ml/min Glucose 187 H (74-106) mg/dL Hemoglobin A1c (4.5-6.2) % Calcium 10.4 H (8.5-10.1) mg/dL Total Bilirubin 0.8 (0.2-1.0) mg/dL AST 22 (15-37) IU/L ALT 45 (14-63) IU/L Alkaline Phosphatase 152 H (46-116) U/L Troponin I < 0.050 (0.000-0.056) ng/mL Total Protein 7.4 (6.4-8.2) g/dL Albumin 4.0 (3.4-5.0) g/dL Globulin 3.4 (2.0-3.5) g/dL Albumin/Globulin Ratio 1.2 L (1.3-2.8) Triglycerides 218 H (0-200) mg/dL Cholesterol 245 H (50-200) mg/dL LDL Cholesterol, Calc 157 (60-180) mg/dL VLDL Cholesterol 43 (5-55) mg/dL HDL Cholesterol 44 (40-60) mg/dL Cholesterol/HDL Ratio 5.6 (3.3-6.0) TSH 3rd Generation (0.36-3.74) uIU/mL 08/04/18 08/04/18 08/04/18 Range/Units 15:10 15:10 22:58 WBC (4.0-11.0) K/uL RBC (4.30-5.90) M/uL Hgb (12.0-16.0) g/dL Hct (36.0-46.0) % MCV (80.0-98.0) fL MCH (27.0-32.0) pg MCHC (31.0-37.0) g/dL RDW Std Deviation (28.0-62.0) fl RDW Coeff of Jennifer (11.0-15.0) % Plt Count (150-400) K/uL MPV (7.40-12.00) fL Neut % (Auto) (48.0-80.0) % Lymph % (Auto) (16.0-40.0) % [place] % (Auto) (0.0-15.0) % Eos % (Auto) (0.0-7.0) % Baso % (Auto) (0.0-1.5) % Neut # (Auto) (1.4-5.7) K/uL Lymph # (Auto) (0.6-2.4) K/uL [place] # (Auto) (0.0-0.8) K/uL Eos # (Auto) (0.0-0.7) K/uL Baso # (Auto) (0.0-0.1) K/uL Nucleated RBC % /100WBC Nucleated RBCs # K/uL Sodium (136-145) mmol/L Potassium (3.5-5.1) mmol/L Chloride (98-107) mmol/L Carbon Dioxide (21.0-32.0) mmol/L BUN (7.0-18.0) mg/dL Creatinine (0.6-1.0) mg/dL Est Cr Clr Drug Dosing mL/min Estimated GFR (MDRD) ml/min Glucose (74-106) mg/dL Hemoglobin A1c 5.8 (4.5-6.2) % Calcium (8.5-10.1) mg/dL Total Bilirubin (0.2-1.0) mg/dL AST (15-37) IU/L ALT (14-63) IU/L Alkaline Phosphatase (46-116) U/L Troponin I < 0.050 (0.000-0.056) ng/mL Total Protein (6.4-8.2) g/dL Albumin (3.4-5.0) g/dL Globulin (2.0-3.5) g/dL Albumin/Globulin Ratio (1.3-2.8) Triglycerides (0-200) mg/dL Cholesterol (50-200) mg/dL LDL Cholesterol, Calc (60-180) mg/dL VLDL Cholesterol (5-55) mg/dL HDL Cholesterol (40-60) mg/dL Cholesterol/HDL Ratio (3.3-6.0) TSH 3rd Generation 1.41 (0.36-3.74) uIU/mL 08/05/18 08/05/18 08/05/18 Range/Units 06:45 06:45 06:45 WBC 8.44 (4.0-11.0) K/uL RBC 5.32 (4.30-5.90) M/uL Hgb 15.7 (12.0-16.0) g/dL Hct 45.7 (36.0-46.0) % MCV 85.9 (80.0-98.0) fL MCH 29.5 (27.0-32.0) pg MCHC 34.4 (31.0-37.0) g/dL RDW Std Deviation 40.6 (28.0-62.0) fl RDW Coeff of Jennifer 13 (11.0-15.0) % Plt Count 192 (150-400) K/uL MPV 10.70 (7.40-12.00) fL Neut % (Auto) 63.9 (48.0-80.0) % Lymph % (Auto) 24.1 (16.0-40.0) % [place] % (Auto) 9.4 (0.0-15.0) % Eos % (Auto) 2.0 (0.0-7.0) % Baso % (Auto) 0.6 (0.0-1.5) % Neut # (Auto) 5.4 (1.4-5.7) K/uL Lymph # (Auto) 2.0 (0.6-2.4) K/uL [place] # (Auto) 0.8 (0.0-0.8) K/uL Eos # (Auto) 0.2 (0.0-0.7) K/uL Baso # (Auto) 0.1 (0.0-0.1) K/uL Nucleated RBC % 0.0 /100WBC Nucleated RBCs # 0 K/uL Sodium 141 (136-145) mmol/L Potassium 4.2 (3.5-5.1) mmol/L Chloride 106 (98-107) mmol/L Carbon Dioxide 27.2 (21.0-32.0) mmol/L BUN 13 (7.0-18.0) mg/dL Creatinine 0.9 (0.6-1.0) mg/dL Est Cr Clr Drug Dosing 66.86 mL/min Estimated GFR (MDRD) > 60.0 ml/min Glucose 134 H (74-106) mg/dL Hemoglobin A1c (4.5-6.2) % Calcium 9.4 (8.5-10.1) mg/dL Total Bilirubin 0.8 (0.2-1.0) mg/dL AST 18 (15-37) IU/L ALT 38 (14-63) IU/L Alkaline Phosphatase 133 H (46-116) U/L Troponin I < 0.050 (0.000-0.056) ng/mL Total Protein 6.2 L (6.4-8.2) g/dL Albumin 3.5 (3.4-5.0) g/dL Globulin 2.7 (2.0-3.5) g/dL Albumin/Globulin Ratio 1.3 (1.3-2.8) Triglycerides (0-200) mg/dL Cholesterol (50-200) mg/dL LDL Cholesterol, Calc (60-180) mg/dL VLDL Cholesterol (5-55) mg/dL HDL Cholesterol (40-60) mg/dL Cholesterol/HDL Ratio (3.3-6.0) TSH 3rd Generation (0.36-3.74) uIU/mL Med Orders - Current: Current Medications Discontinued Medications Acetaminophen (Tylenol) 650 mg PO Q4H PRN PRN Reason: Pain (Mild 1-3)/fever Chlorthalidone (Chlorthalidone) 25 mg PO DAILY [facility] Last Admin: 08/05/18 08:30 Dose: 25 mg Enoxaparin Sodium (Lovenox) 40 mg SUBCUT Q24H [facility] Last Admin: 08/04/18 17:49 Dose: 40 mg Sodium Chloride (Normal Saline) 1,000 mls @ 125 mls/hr IV ASDIRECTED [facility] Last Admin: 08/05/18 03:28 Dose: 125 mls/hr Labetalol HCl (Normodyne) 20 mg IVPUSH NOW ONE; Protocol Stop: 08/04/18 15:18 Last Admin: 08/04/18 15:32 Dose: 20 mg Lisinopril (Prinivil) 5 mg PO DAILY [facility] Last Admin: 08/05/18 10:19 Dose: 5 mg Morphine Sulfate (Morphine) 2 mg IVPUSH Q2H PRN PRN Reason: Pain (severe 7-10) Stop: 08/05/18 16:28 Nitroglycerin (Nitrostat) 0.4 mg SL Q5M PRN PRN Reason: Chest Pain Last Admin: 08/04/18 15:12 Dose: 0.4 mg Nitroglycerin (Nitrostat) 0.4 mg SL Q5M PRN PRN Reason: Chest Pain Ondansetron HCl (Zofran) 4 mg IVPUSH Q4H PRN PRN Reason: Nausea/Vomiting Potassium Chloride (Klor-Con M20) 40 meq PO BID [facility] Last Admin: 08/05/18 08:29 Dose: 40 meq Sodium Chloride (Saline Flush) 10 ml FLUSH ASDIRECTED PRN PRN Reason: Keep Vein Open Last Admin: 08/04/18 15:00 Dose: 10 ml Sodium Chloride (Saline Flush) 2.5 ml FLUSH ASDIRECTED PRN PRN Reason: Keep Vein Open Last Admin: 08/04/18 14:59 Dose: 2.5 ml Sodium Chloride (Saline Flush) 10 ml FLUSH ASDIRECTED PRN PRN Reason: Keep Vein Open Sodium Chloride (Saline Flush) 2.5 ml FLUSH ASDIRECTED PRN PRN Reason: Keep Vein Open
== END 2018-08-05 11:55 | disposition home or self-care (01) ==
LOC: MW.ED 14:21 → MW.MS 16:00
PROVIDERS: ADMIT Internal Medicine; ATTEND Internal Medicine
DX: R07.89 Other chest pain (principal); I10 Essential (primary) hypertension; Z79.899 Other long term (current) drug therapy; Z88.1 Allergy status to other antibiotic agents
CPT/HCPCS: 36415; 71045; 80053; 80061; 83036; 84443; 84484; 85025; 93005; 96361; 96372; 96374; 99285; A9270; G0378; J1650; J3490; J7040; 99283